=== PATIENT | female | born 1980 ===

== ENCOUNTER 2019-10-26 06:50 | Day surgery (SDC) | payer OTHER ==
[2019-10-26] MEDS ORDERED: Sugammadex Sodium 200 MG/2 ML VIAL ONE (07:01)
[2019-10-26] MEDS ORDERED: Glycopyrrolate 0.2 MG/ML SDV ONE (07:06)
[2019-10-26] MEDS ORDERED: Lidocaine 2% 5 ML SDV ONE (07:06)
[2019-10-26] MEDS ORDERED: Ondansetron 4 MG/2 ML SDV ONE (07:06)
[2019-10-26] MEDS ORDERED: Ketorolac 30 MG/ML SDV ONE (07:06)
[2019-10-26] MEDS ORDERED: Rocuronium 100 MG/10 ML Syringe ONE ×2 (07:06→09:51)
[2019-10-26] MEDS ORDERED: fentaNYL 250 MCG/5 ML SDV ONE (07:09)
[2019-10-26] MEDS ORDERED: Propofol 200 MG/20 ML SDV ONE (07:09)
[2019-10-26] MEDS ORDERED: Midazolam 1 MG/ML 2 ML SDV ONE (07:09)
[2019-10-26] MEDS ORDERED: Vasopressin 20 Units/1 ML MDV ONE (07:17)
[2019-10-26] MEDS ORDERED: Fluorescein 5 ML Vial ONE (07:17)
[2019-10-26] MEDS ORDERED: Acetaminophen 1,000 MG in Premix Bag 1 BAG IV PRN (07:20)
[2019-10-26] MEDS ORDERED: fentaNYL 100 MCG/2 ML SDV IVPUSH PRN (07:20)
[2019-10-26] MEDS ORDERED: Scopolamine 1.5 MG Transdermal Patch TRDERM PRN (07:23)
--- NOTE | 2019-10-26 07:26 | PCM.PREANE ---
Preanesthetic Assessment - Anesthesia/Transfusion/Family Hx Anesthesia History: Prior Anesthesia Without Reaction Family History of Anesthesia Reaction: No Transfusion History: No Prior Transfusion(s) Intubation History: Unknown - Review of Systems General: No Symptoms Pulmonary: No Symptoms Cardiovascular: No Symptoms Gastrointestinal: No Symptoms Neurological: No Symptoms Other: Reports: None - Physical Assessment Height: 5 ft 5.5 in Weight: 97.069 kg ASA Class: 2 Mental Status: Alert & Oriented x3 Airway Class: Mallampati = 2 Dentition: Reports: Normal Dentition Thyro-Mental Finger Breadths: 3 Mouth Opening Finger Breadths: 2 ROM/Head Extension: Full Lungs: Clear to Auscultation, Normal Respiratory Effort Cardiovascular: Regular Rate, Regular Rhythm - Allergies Allergies/Adverse Reactions: Allergies Allergy/AdvReac Type Severity Reaction Status Date / Time No Known Allergies Allergy Verified 10/22/19 11:25 - Blood Blood Available: No - Anesthesia Plan Pre-Op Medication Ordered: None - Acknowledgements Anesthesia Type Planned: General Anesthesia Pt an Appropriate Candidate for the Planned Anesthesia: Yes Alternatives and Risks of Anesthesia Discussed w Pt/Guardian: Yes Pt/Guardian Understands and Agrees with Anesthesia Plan: Yes PreAnesthesia Questionnaire ANESTHESIOLOGIST ASSISTANT CERTIFIED History: Reports: Endocrine/Metabolic History: Reports: Obesity/BMI 30+ (BMI 35.1) - Past Surgical History Female Surgical History: Reports: Breast Biopsy (rt. breast bx '15) - SUBSTANCE USE Smoking Status *Q: Never Smoker Recreational Drug Use History: No - HOME MEDS Home Medications: Home Meds Tranexamic Acid [Lysteda] 1,300 mg PO TID 10/22/19 [History] - CURRENT (IN HOUSE) MEDS Current Meds: Current Medications Fentanyl (Sublimaze) 50 mcg IVPUSH Q5M PRN PRN Reason: Pain Acetaminophen 1,000 mg/ Premix 100 mls @ 400 mls/hr IV Q6H PRN PRN Reason: Pain Scopolamine (Transderm-Scop) 1.5 mg TRDERM Q72H PRN PRN Reason: Nausea Discontinued Medications Fentanyl (Sublimaze) Confirm Administered Dose 250 mcg .ROUTE .STK-MED ONE Stop: 10/26/19 07:10 Fluorescein Sodium (Ak-Fluor) Confirm Administered Dose 5 ml .ROUTE .STK-MED ONE Stop: 10/26/19 07:18 Glycopyrrolate (Robinul) Confirm Administered Dose 0.2 mg .ROUTE .STK-MED ONE Stop: 10/26/19 07:07 Ketorolac Tromethamine (Toradol) Confirm Administered Dose 30 mg .ROUTE .STK- MED ONE Stop: 10/26/19 07:07 Lidocaine (Xylocaine-Mpf 2%) Confirm Administered Dose 5 ml .ROUTE .STK-MED ONE Stop: 10/26/19 07:07 Midazolam HCl (Versed 1 Mg/Ml) Confirm Administered Dose 2 mg .ROUTE .STK-MED ONE Stop: 10/26/19 07:10 Ondansetron HCl (Zofran) Confirm Administered Dose 4 mg .ROUTE .STK-MED ONE Stop: 10/26/19 07:07 Propofol (Diprivan 20 Ml) Confirm Administered Dose 200 mg .ROUTE .STK-MED ONE Stop: 10/26/19 07:10 Rocuronium [place] (Zemuron) Confirm Administered Dose 100 mg .ROUTE .STK-MED ONE Stop: 10/26/19 07:07 Sugammadex Sodium (Bridion) Confirm Administered Dose 200 mg .ROUTE .STK-MED ONE Stop: 10/26/19 07:02 Vasopressin (Vasopressin) Confirm Administered Dose 20 units .ROUTE .STK-MED ONE Stop: 10/26/19 07:18
[2019-10-26] MEDS: Lactated Ringers 1,000 ML IV SCH ×2 (07:42→17:21)
[2019-10-26 07:48] LABS: BLOOD UREA NITROGEN,BUN 10 mg/dL (7.0-18.0); CARBON DIOXIDE,CO2 26.8 mmol/L (21.0-32.0); CHLORIDE,CL 106 mmol/L (98-107); GLUCOSE RANDOM 100 mg/dL (74-106); POTASSIUM,K 3.7 mmol/L (3.5-5.1); SODIUM,NA 141 mmol/L (136-145)
[2019-10-26] MEDS ORDERED: Sodium Chloride 0.9% 10 ML Syringe FLUSH PRN (07:49)
[2019-10-26] MEDS ORDERED: ceFAZolin 2 GM in Premix Bag 1 BAG IV ONE (07:49)
[2019-10-26] MEDS ORDERED: Sodium Chloride 0.9% 2.5 ML Syringe FLUSH PRN (07:49)
[2019-10-26] MEDS ORDERED: Sodium Chloride 0.9% 10 ML SDV IV PRN (07:49)
[2019-10-26] MEDS ORDERED: HYDROmorphone 2 MG/ML Syringe ONE ×2 (08:37→10:18)
[2019-10-26] MEDS ORDERED: Furosemide 40 MG/4 ML VIAL ONE (10:02)
[2019-10-26] MEDS ORDERED: Morphine 4 MG/ML Syringe IVPUSH PRN (11:41)
[2019-10-26] MEDS ORDERED: Ketorolac 30 MG/ML SDV IVPUSH PRN (11:41)
[2019-10-26] MEDS ORDERED: Promethazine 25 MG/ML SDV IM PRN (11:41)
[2019-10-26] MEDS ORDERED: Ketorolac 30 MG/ML SDV IVPUSH ONE (11:41)
[2019-10-26] MEDS ORDERED: Ondansetron 4 MG/2 ML SDV IVPUSH PRN (11:41)
--- NOTE | 2019-10-26 11:46 | PCM.POSTAN ---
POST ANESTHESIA ASSESSMENT - MENTAL STATUS Mental Status: Alert, Oriented - VITAL SIGNS Vital Signs: Last Vital Signs Temp 36.2 C 10/26/19 11:01 Pulse 71 10/26/19 11:36 Resp 10 L 10/26/19 11:36 BP 120/59 L 10/26/19 11:36 Pulse Ox 100 10/26/19 11:36 - RESPIRATORY Respiratory Status: Respiratory Rate WNL, Airway Patent, O2 Saturation Stable - CARDIOVASCULAR CV Status: Pulse Rate WNL, Blood Pressure Stable - GASTROINTESTINAL GI Status: No Symptoms - PAIN Pain Score: 3 - POST OP HYDRATION Hydration Status: Adequate & Stable - OBSERVATIONS Free Text/Narrative:: No anesthesia problems.
--- NOTE | 2019-10-26 12:01 | PCM.OPNOTE ---
- General Post-Op/Procedure Note Date of Surgery/Procedure: 10/26/19 Operative Procedure(s): Total Laparoscopic Hysterectomy. Bilateral salphingectomy Findings: EUA showed retroverted 10 weeks sized uterus Laparoscopy showed fibroid uterus Pre Op Diagnosis: Abnormal uterine bleeding - Leiomyoma Post-Op Diagnosis: same Anesthesia Technique: General ET Tube Primary Surgeon: Alessio Loenard Secondary Surgeon: Isabel Moncada Anesthesia Provider: Alvin Mancuso Pathology: Uterus and tube Fluid Replacement, Intraop: 2,200 Output, Urine Amount: 450 EBL in mLs: 100 Complications: None Condition: Good Free Text/Narrative:: Intake & Output 10/25/19 10/26/19 10/26/19 22:59 06:59 14:59 Intake Total 2300 Output Total 1400 Balance 900
[2019-10-26] MEDS: Metoclopramide 10 MG/2 ML SDV IVPUSH SCH ×2 (13:20→18:52)
[2019-10-26] MEDS ORDERED: Acetaminophen 325 MG Tab PO SCH (14:00)
[2019-10-26] MEDS: Ketorolac 30 MG/ML SDV IVPUSH SCH ×2 (21:51→21:52)
[2019-10-26] MEDS: Acetaminophen 325 MG Tab PO SCH (21:55)
[2019-10-26] MEDS: oxyCODONE 5 MG Tab PO PRN (21:57)
[2019-10-27] MEDS: Ketorolac 30 MG/ML SDV IVPUSH SCH ×2 (01:02→06:25)
[2019-10-27] MEDS: Metoclopramide 10 MG/2 ML SDV IVPUSH SCH ×2 (01:04→06:25)
[2019-10-27] MEDS: Lactated Ringers 1,000 ML IV SCH (03:19)
[2019-10-27] MEDS: Acetaminophen 325 MG Tab PO SCH ×2 (03:30→09:48)
[2019-10-27] MEDS ORDERED: Acetaminophen/oxyCODONE 325-5 MG Tab PO PRN (05:00)
[2019-10-27 06:27] LABS: BLOOD UREA NITROGEN,BUN 5 mg/dL (7.0-18.0); CARBON DIOXIDE,CO2 27.6 mmol/L (21.0-32.0); CHLORIDE,CL 104 mmol/L (98-107); GLUCOSE RANDOM 119 mg/dL (74-106); SODIUM,NA 138 mmol/L (136-145)
--- NOTE | 2019-10-27 07:43 | PCM48HPAN ---
Post Anesthesia Note - EVALUATION WITHIN 48HRS OF ANESTHETIC Vital Signs in Normal Range: Yes Patient Participated in Evaluation: Yes Respiratory Function Stable: Yes Airway Patent: Yes Cardiovascular Function Stable: Yes Hydration Status Stable: Yes Pain Control Satisfactory: Yes Nausea and Vomiting Control Satisfactory: Yes Mental Status Recovered: Yes Vital Signs: Last Vital Signs Temp 36.6 C 10/27/19 04:00 Pulse 77 10/27/19 04:00 Resp 14 10/27/19 04:00 BP 103/59 L 10/27/19 04:00 Pulse Ox 93 L 10/27/19 04:00 - COMMENTS/OBSERVATIONS Free Text/Narrative:: No concerns related to anesthesia.
[2019-10-27] MEDS: oxyCODONE 5 MG Tab PO PRN (08:09)
--- NOTE | 2019-10-27 09:16 | OR ---
SURGEON: JEFF ETIENNE DATE OF PROCEDURE: 10/26/2019 PREOPERATIVE DIAGNOSIS: A 39-year-old with abnormal uterine bleeding secondary to fibroid uterus. POSTOPERATIVE DIAGNOSIS: A 39-year-old with abnormal uterine bleeding secondary to fibroid uterus. PROCEDURES: Total laparoscopic hysterectomy, bilateral salpingectomy, Cystoscopy Sloan culdoplasty. ANESTHESIA: General. ESTIMATED BLOOD LOSS: 100. IV FLUID: 2200. OUTPUT: 450. COMPLICATIONS: None. NOTES AND FINDINGS: A 9-week size anteverted uterus. Laparoscopy showed a fibroid uterus.Normal tubes and ovary. Cystoscopy showed bilateral ureteral jets and intact bladder DESCRIPTION OF PROCEDURE: The patient was taken to the operating room where general anesthesia was performed without difficulty. She was prepared and draped in the dorsal supine position with an Antelmo stirrup. A Garner catheter was placed. A speculum was placed to expose the cervix. The anterior lip of the cervix was grasped and the cervix was sized to 4 Advincula. The cervix was then dilated to accommodate the Advincula and the uterus was sounded to about 11 cm. The Advincula was placed without difficulty, then attention was placed to the abdomen. A subumbilical 5mm incision was made after injection of 0.25% Marcaine. The abdomen was entered via direct entry. Entry was confirmed with low intraabdominal pressure of 5 mmHg and visualization of bowel. CO2 pneumoperitoneum was obtained to 15 mmHg. The patient was placed in Trendelenburg position. Then, the right and lower quadrant 5mm port was placed 2 fingerbreath superior and inferior to anterior iliac spine. The bilateral ureteral was observed in the posterior pelvic wall . The colon was gently retracted out of the posterior cul-de-sac. The tube was grasped by the administrative office assistant and with the aid of the LigaSure device, it was sequentially coagulated and cut to separate it from the ovary, pelvic peritoneum, and ligament. The tube was all the way to the cornua of the uterus. The left tube was then detached in the same fashion. The round ligament was transected two-thirds from the uterus and one-third from the pelvic sidewall.The ovarian ligament was also transected with the ligasure to seperate the ovary from the uterus. The anterior and posterior broad ligaments were to expose the uterine artery. The uterine artery was skeletonized. The bladder flap was created with the aid of the Harmonic scalpel. The uterine vessels were then coagulated at the cervicovaginal junction, then lateralized. The Advincula cup was then entered via a circumferential incision made between the cervix and the vagina with Harmonic scalpel. This was done on the right and the left side. With a circumferential incision around the colpotomy cup, the uterus was detached. Attention was placed to the perineum where the uterus was removed. The uterosacral ligaments were identified. The Sloan stitch with 2-0 Vicryl was placed from the posterior vaginal wall to the uterosacral ligament over the pelvic peritoneum and the posterior cul-de-sac to the other uterosacral ligament. Then, the colpotomy cup was closed from anterior to posterior with an interlocking stitch with 0 Polysorb. IV fluorescein was given. The cystoscopy was performed and bilateral ureteral jets were observed and the bladder was noted to be intact. Then, a sponge stick was placed in the vagina. Attention was placed to the abdomen. The incision was inspected and was hemostatic. The pneumoperitoneum was reduced to 5 mmhg and the cuff was noted to be hemostatic. The gas was deflated and all trocars were removed. The laparoscopic incision was closed with 3-0 Monocryl. All instrument and pad counts were correct x2. The patient tolerated the procedure well and was taken to recovery room in stable condition. ARLENE KINNEY /[id number] MIS
--- NOTE | 2019-10-27 12:02 | PCM.SURGPN ---
- General Info Date of Service: 10/27/19 Date of Surgery/Procedure: 10/26/19 POD#: 1 Post-Op Diagnosis: AUB-L Functional Status: Reports: Pain Controlled, Tolerating Diet, Ambulating, Urinating - Review of Systems General: Reports: No Symptoms HEENT: Reports: No Symptoms Pulmonary: Reports: No Symptoms Cardiovascular: Reports: No Symptoms Gastrointestinal: Reports: No Symptoms Genitourinary: Reports: No Symptoms Musculoskeletal: Reports: No Symptoms Skin: Reports: No Symptoms Neurological: Reports: No Symptoms Psychiatric: Reports: No Symptoms - Patient Data Vitals - Most Recent: Last Vital Signs Temp 36.7 C 10/27/19 08:00 Pulse 73 10/27/19 08:00 Resp 16 10/27/19 08:00 BP 115/56 L 10/27/19 08:00 Pulse Ox 95 10/27/19 08:00 Weight - Most Recent: 97.069 kg I&O - Last 24 Hours: Intake & Output 10/26/19 10/27/19 10/27/19 22:59 06:59 14:59 Intake Total 612 1150 Output Total 350 550 Balance 262 600 Lab Results Last 24 Hrs: Laboratory Results - last 24 hr 10/27/19 10/27/19 Range/Units 05:41 05:41 WBC 10.62 (4.0-11.0) K/uL RBC 4.01 L (4.30-5.90) M/uL Hgb 11.6 L (12.0-16.0) g/dL Hct 36.2 (36.0-46.0) % MCV 90.3 (80.0-98.0) fL MCH 28.9 (27.0-32.0) pg MCHC 32.0 (31.0-37.0) g/dL RDW Std Deviation 43.5 (28.0-62.0) fl RDW Coeff of Corinne 13 (11.0-15.0) % Plt Count 253 (150-400) K/uL MPV 10.70 (7.40-12.00) fL Neut % (Auto) 81.4 H (48.0-80.0) % Lymph % (Auto) 10.7 L (16.0-40.0) % [place] % (Auto) 7.3 (0.0-15.0) % Eos % (Auto) 0.4 (0.0-7.0) % Baso % (Auto) 0.2 (0.0-1.5) % Neut # (Auto) 8.7 H (1.4-5.7) K/uL Lymph # (Auto) 1.1 (0.6-2.4) K/uL [place] # (Auto) 0.8 (0.0-0.8) K/uL Eos # (Auto) 0.0 (0.0-0.7) K/uL Baso # (Auto) 0.0 (0.0-0.1) K/uL Nucleated RBC % 0.0 /100WBC Nucleated RBCs # 0 K/uL Sodium 138 (136-145) mmol/L Potassium 4.0 (3.5-5.1) mmol/L Chloride 104 (98-107) mmol/L Carbon Dioxide 27.6 (21.0-32.0) mmol/L BUN 5 L (7.0-18.0) mg/dL Creatinine 0.8 (0.6-1.0) mg/dL Est Cr Clr Drug Dosing 87.53 mL/min Estimated GFR (MDRD) > 60.0 ml/min Glucose 119 H (74-106) mg/dL Calcium 8.5 (8.5-10.1) mg/dL Med Orders - Current: Current Medications Acetaminophen (Tylenol) 650 mg PO Q6H [facility] Last Admin: 10/27/19 09:48 Dose: 650 mg Lactated Ringer's (Ringers, Lactated) 1,000 mls @ 100 mls/hr IV ASDIRECTED [facility] Last Admin: 10/27/19 03:19 Dose: 100 mls/hr Ketorolac Tromethamine (Toradol) 30 mg IVPUSH Q6H [facility] Last Admin: 10/27/19 06:25 Dose: 30 mg Metoclopramide HCl (Reglan) 10 mg IVPUSH Q6H [facility] Last Admin: 10/27/19 06:25 Dose: 10 mg Morphine Sulfate (Morphine) 4 mg IVPUSH Q2H PRN PRN Reason: Pain (severe 7-10) Last Admin: 10/26/19 13:26 Dose: 4 mg Ondansetron HCl (Zofran) 4 mg IVPUSH Q6H PRN PRN Reason: Nausea/Vomiting Oxycodone HCl (Oxycodone) 5 mg PO Q4H PRN PRN Reason: Pain (moderate 4-6) Last Admin: 10/27/19 08:09 Dose: 5 mg Promethazine HCl (Phenergan) 25 mg IM Q6H PRN PRN Reason: Nausea/Vomiting Sodium Chloride (Saline Flush) 2.5 ml FLUSH ASDIRECTED PRN PRN Reason: Keep Vein Open Discontinued Medications Acetaminophen (Tylenol) 650 mg PO Q6H ANA Fentanyl (Sublimaze) Confirm Administered Dose 250 mcg .ROUTE .STK-MED ONE Stop: 10/26/19 07:10 Fentanyl (Sublimaze) 50 mcg IVPUSH Q5M PRN PRN Reason: Pain Fluorescein Sodium (Ak-Fluor) Confirm Administered Dose 5 ml .ROUTE .STK-MED ONE Stop: 10/26/19 07:18 Furosemide (Lasix) Confirm Administered Dose 40 mg .ROUTE .STK-MED ONE Stop: 10/26/19 10:03 Glycopyrrolate (Robinul) Confirm Administered Dose 0.2 mg .ROUTE .STK-MED ONE Stop: 10/26/19 07:07 Hydromorphone HCl (Dilaudid) Confirm Administered Dose 2 mg .ROUTE .STK-MED ONE Stop: 10/26/19 08:38 Hydromorphone HCl (Dilaudid) Confirm Administered Dose 2 mg .ROUTE .STK-MED ONE Stop: 10/26/19 10:19 Acetaminophen 1,000 mg/ Premix 100 mls @ 400 mls/hr IV Q6H PRN PRN Reason: Pain Last Admin: 10/26/19 11:09 Dose: 400 mls/hr Cefazolin Sodium/Dextrose 2 gm (/ Premix) 50 mls @ 100 mls/hr IV ONETIME ONE Stop: 10/26/19 08:18 Last Admin: 10/26/19 12:15 Dose: Not Given Acetaminophen (Ofirmev) Confirm Administered Dose 100 mls @ as directed .ROUTE .STK-MED ONE Stop: 10/26/19 11:07 Ketorolac Tromethamine (Toradol) Confirm Administered Dose 30 mg .ROUTE .STK- MED ONE Stop: 10/26/19 07:07 Ketorolac Tromethamine (Toradol) 30 mg IVPUSH ONETIME ONE Stop: 10/26/19 11:42 Last Admin: 10/26/19 12:13 Dose: Not Given Lidocaine (Xylocaine-Mpf 2%) Confirm Administered Dose 5 ml .ROUTE .STK-MED ONE Stop: 10/26/19 07:07 Midazolam HCl (Versed 1 Mg/Ml) Confirm Administered Dose 2 mg .ROUTE .STK-MED ONE Stop: 10/26/19 07:10 Ondansetron HCl (Zofran) Confirm Administered Dose 4 mg .ROUTE .STK-MED ONE Stop: 10/26/19 07:07 Propofol (Diprivan 20 Ml) Confirm Administered Dose 200 mg .ROUTE .STK-MED ONE Stop: 10/26/19 07:10 Rocuronium [place] (Zemuron) Confirm Administered Dose 100 mg .ROUTE .STK-MED ONE Stop: 10/26/19 07:07 Rocuronium [place] (Zemuron) Confirm Administered Dose 100 mg .ROUTE .STK-MED ONE Stop: 10/26/19 09:52 Scopolamine (Transderm-Scop) 1.5 mg TRDERM Q72H PRN PRN Reason: Nausea Last Admin: 10/26/19 07:37 Dose: 1.5 mg Sodium Chloride (Saline Flush) 10 ml FLUSH ASDIRECTED PRN PRN Reason: Keep Vein Open Sodium Chloride (Normal Saline) 10 ml IV ASDIRECTED PRN PRN Reason: IV Use Sugammadex Sodium (Bridion) Confirm Administered Dose 200 mg .ROUTE .STK-MED ONE Stop: 10/26/19 07:02 Vasopressin (Vasopressin) Confirm Administered Dose 20 units .ROUTE .STK-MED ONE Stop: 10/26/19 07:18 - Exam Wound/Incisions: Dressing Dry and Intact General: Alert HEENT: Pupils Equal Neck: Supple Lungs: Clear to Auscultation Cardiovascular: Regular Rate, Regular Rhythm GI/Abdominal Exam: Normal Bowel Sounds, Other (Laparoscopic incision c/d/i) Extremities: Normal Inspection, Normal Range of Motion Psy/Mental Status: Alert Sepsis Event Note - Evaluation Sepsis Screening Result: No Definite Risk - Focused Exam Vital Signs: Vital Signs Temp Pulse Resp BP Pulse Ox 10/27/19 08:00 36.7 C 73 16 115/56 L 95 10/27/19 04:00 36.6 C 77 14 103/59 L 93 L 10/27/19 00:00 36.6 C 82 14 102/46 L 98 Date Exam was Performed: 10/27/19 Time Exam was Performed: 11:57 - Problem List & Annotations (1) S/P hysterectomy SNOMED Code(s): 345704474, 111966389, 468063839 Code(s): Z90.710 - ACQUIRED ABSENCE OF BOTH CERVIX AND UTERUS Status: Acute Current Visit: Yes - Problem List Review Problem List Initiated/Reviewed/Updated: Yes - My Orders Last 24 Hours: Active Orders 24 hr Category Date Time Status Patient Status [ADT] Routine ADT 10/26/19 11:41 Active Antiembolic Devices [RC] PER UNIT ROUTINE Care 10/26/19 11:42 Active Notify Provider Intake and Out [RC] ASDIRECTED Care 10/26/19 11:41 Active Notify Provider Vital Signs [RC] ASDIRECTED Care 10/26/19 11:41 Active Oxygen Therapy [RC] ASDIRECTED Care 10/26/19 11:41 Active RT Incentive Spirometry [RC] Q2HWA Care 10/26/19 11:41 Active Ready for Discharge [RC] PER UNIT ROUTINE Care 10/27/19 11:52 Ordered Up ad Fadia [RC] PER UNIT ROUTINE Care 10/26/19 11:41 Active Urinary Catheter Removal [RC] Per Unit Routine Care 10/26/19 11:41 Active Vital Signs [RC] PER UNIT ROUTINE Care 10/26/19 11:41 Active Advance Diet Instructions [DIET] Diet 10/26/19 Dinner Active Regular Diet [DIET] Diet 10/26/19 Dinner Active Acetaminophen [Tylenol] Med 10/26/19 22:00 Active 650 mg PO Q6H Metoclopramide [Reglan] Med 10/26/19 13:00 Active 10 mg IVPUSH Q6H Morphine Med 10/26/19 11:41 Active 4 mg IVPUSH Q2H PRN Ondansetron [Zofran] Med 10/26/19 11:41 Active 4 mg IVPUSH Q6H PRN Promethazine [Phenergan] Med 10/26/19 11:41 Active 25 mg IM Q6H PRN oxyCODONE Med 10/26/19 11:41 Active 5 mg PO Q4H PRN Peripheral IV Discontinue [OM.PC] Routine Oth 10/26/19 11:41 Ordered Resuscitation Status Routine Resus Stat 10/26/19 11:41 Ordered Medication Orders Acetaminophen (Tylenol) 650 mg PO Q6H [facility] Last Admin: 10/27/19 09:48 Dose: 650 mg Admin: 10/27/19 03:30 Dose: 650 mg Admin: 10/26/19 21:55 Dose: 650 mg Lactated Ringer's (Ringers, Lactated) 1,000 mls @ 100 mls/hr IV ASDIRECTED [facility] Last Admin: 10/27/19 03:19 Dose: 100 mls/hr Infusion: 10/27/19 03:19 Dose: 100 mls/hr Admin: 10/26/19 17:21 Dose: 100 mls/hr Infusion: 10/26/19 17:21 Dose: 100 mls/hr Admin: 10/26/19 07:42 Dose: 100 mls/hr Ketorolac Tromethamine (Toradol) 30 mg IVPUSH Q6H [facility] Last Admin: 10/27/19 06:25 Dose: 30 mg Admin: 10/27/19 01:02 Dose: 30 mg Admin: 10/26/19 21:52 Dose: Admin: 10/26/19 21:52 Dose: Admin: 10/26/19 21:51 Dose: Admin: 10/26/19 21:51 Dose: Metoclopramide HCl (Reglan) 10 mg IVPUSH Q6H [facility] Last Admin: 10/27/19 06:25 Dose: 10 mg Admin: 10/27/19 01:04 Dose: 10 mg Admin: 10/26/19 18:52 Dose: 10 mg Admin: 10/26/19 13:20 Dose: 10 mg Morphine Sulfate (Morphine) 4 mg IVPUSH Q2H PRN PRN Reason: Pain (severe 7-10) Last Admin: 10/26/19 13:26 Dose: 4 mg Ondansetron HCl (Zofran) 4 mg IVPUSH Q6H PRN PRN Reason: Nausea/Vomiting Oxycodone HCl (Oxycodone) 5 mg PO Q4H PRN PRN Reason: Pain (moderate 4-6) Last Admin: 10/27/19 08:09 Dose: 5 mg Admin: 10/26/19 21:57 Dose: 5 mg Promethazine HCl (Phenergan) 25 mg IM Q6H PRN PRN Reason: Nausea/Vomiting Sodium Chloride (Saline Flush) 2.5 ml FLUSH ASDIRECTED PRN PRN Reason: Keep Vein Open - Assessment Assessment (Free Text/Narrative):: 39yo s/p TLH/BS POD1 Pain control Garner out - voided - Plan Plan (Free Text/Narrative):: Discharge home Pain and Bleeding precautions given
== END 2019-10-27 12:30 | disposition home or self-care (01) ==
LOC: MW.SDS 06:50 → MW.MS 11:19 → MW.SDS 10-27 12:30
PROVIDERS: ATTEND Obstetrics & Gynecology
DX: D25.9 Leiomyoma of uterus, unspecified (principal); E66.9 Obesity, unspecified; Z68.35 Body mass index [BMI] 35.0-35.9, adult; Z20.828 Contact with and (suspected) exposure to other viral communicable diseases
CPT/HCPCS: 36415; 58571; 80048; 84703; 85025; 85027; 86850; 86900; 86901; 87635; 88309; A9270; J0131; J1170; J1885; J1940; J2001; J2250; J2270; J2405; J2704; J2765; J3010; J3490; J7120; 00840; U0002